=== PATIENT | male | born 1980 ===

== ENCOUNTER 2024-09-01 16:10 | Outpatient (CLI) | payer OTHER, SELFPAY ==
--- NOTE | ~2024-09-01 | XR_ITS ---
XR foot LT min 3V Ordering provider: Becca Barrera, TERRI History: . Unspecified injury of left foot, initial encounter . Comparison: None. FINDINGS: BONES: No acute fracture or dislocation. Small bony fragments near to the base of the proximal phalan x of the first and fourth toes. JOINT SPACES: Narrowing of the tarsometatarsal joints. Narrowing of the naviculocuneiform joints. No tarsal coalition. SOFT TISSUES: Ossification of the insertion of the tendo Achilles. IMPRESSION: No acute osseous abnormality left foot. Polyarticular osteoarthritic changes. Reviewed, dictated and finalized at location A.
== END 2024-09-01 16:11 | disposition home or self-care (01) ==
LOC: MICIMG 16:13
PROVIDERS: PCP Physician Assistant; Visit Provider Physician Assistant
DX: M19.072 Primary osteoarthritis, left ankle and foot (principal)
CPT/HCPCS: 73630

== ENCOUNTER 2024-10-08 12:49 | Outpatient (CLI) | payer OTHER, SELFPAY ==
--- NOTE | ~2024-10-08 | US_ITS ---
EXAMINATION: US thyroid DATE: 10/08/2024 13:08 INDICATION: Abnormal thyroid function test TECHNIQUE: Multiple ultrasound images of the thyroid were obtained. COMPARISON: None. FINDINGS: The right thyroid lobe measures 3.2 x 0.9 x 1.2 cm. The left thyroid lobe measures 4.4 x 1.3 x 1.0 c m. Thyroid isthmus measures 4 mm in thickness. No discrete nodules identified. There is normal echote xture, echogenicity and vascular flow throughout the thyroid gland. IMPRESSION: 1. Normal thyroid ultrasound. Reviewed, dictated and finalized at location A. TER
== END 2024-10-08 12:50 | disposition home or self-care (01) ==
LOC: MICIMG 12:49
PROVIDERS: PCP Physician Assistant; Visit Provider Physician Assistant
DX: R94.6 Abnormal results of thyroid function studies (principal)
CPT/HCPCS: 76536

== ENCOUNTER 2025-06-15 08:21 | Outpatient (CLI) | payer OTHER, SELFPAY ==
--- NOTE | 2025-06-15 | EST_ITS ---
Patient Info Name: Jamir Burnett Age: 44 years : 1980 Gender: Male Ht: 72 in Wt: 375 lbs BSA: 3.03 m2 HR: 66 bpm BP: 149 / 92 mmHg Exam Date: 06/15/2025 9:18 AM Patient Status: O Admit Date: 06/15/2025 Exam Type: CA stress test treadmill w NM A nuclear stress test was performed. Staff Referring Physician: Becca Barrera Attending Provider: Becca Barrera Exercise Technologist: Marisol Mo Exercise Physician: Rajeev Conrad DO Summary 1. 1. Negative Max exercise stress test for ischemic ST changes by ECG criteria. 2. 2. Reduced functional capacity, achieving 8.9 METs of workload. 3. 3. Baseline hypertension with hypertensive response to exercise. 4. 4. Appropriate HR response to exercise. 5. 5. Appropriate HR recovery at 1 minute post exercise. 6. 5. Nuclear scan to follow and will be reported separately. Please correlate with it. 7. 6. Patient informed of the above results. Protocol: Max Stress ECG Details Stage: REST Duration (min): 0 min : 32 sec Speed (mph): 0.0 Grade (%): 0 HR (bpm): 65 SBP (mmHg): --- DBP (mmHg): --- METS: --- Stage: REST Duration (min): 4 min : 25 sec Speed (mph): 0.0 Grade (%): 0 HR (bpm): 86 SBP (mmHg): 149 DBP (mmHg): 92 METS: --- Stage: STAGE 1 Duration (min): 1 min : 0 sec Speed (mph): 1.7 Grade (%): 10 HR (bpm): 118 SBP (mmHg): 149 DBP (mmHg): 92 METS: --- Stage: STAGE 1 Duration (min): 2 min : 0 sec Speed (mph): 1.7 Grade (%): 10 HR (bpm): 124 SBP (mmHg): 149 DBP (mmHg): 92 METS: --- Stage: STAGE 1 Duration (min): 3 min : 0 sec Speed (mph): 1.7 Grade (%): 10 HR (bpm): 125 SBP (mmHg): 149 DBP (mmHg): 92 METS: --- Stage: STAGE 2 Duration (min): 1 min : 0 sec Speed (mph): 2.5 Grade (%): 12 HR (bpm): 132 SBP (mmHg): 149 DBP (mmHg): 92 METS: --- Stage: STAGE 2 Duration (min): 2 min : 0 sec Speed (mph): 2.5 Grade (%): 12 HR (bpm): 134 SBP (mmHg): 221 DBP (mmHg): 138 METS: --- Stage: STAGE 2 Duration (min): 3 min : 0 sec Speed (mph): 2.5 Grade (%): 12 HR (bpm): 143 SBP (mmHg): 221 DBP (mmHg): 138 METS: --- Stage: STAGE 3 Duration (min): 1 min : 0 sec Speed (mph): 3.4 Grade (%): 14 HR (bpm): 150 SBP (mmHg): 221 DBP (mmHg): 138 METS: --- Stage: STAGE 3 Duration (min): 1 min : 0 sec Speed (mph): 3.4 Grade (%): 14 HR (bpm): 151 SBP (mmHg): 221 DBP (mmHg): 138 METS: --- Stage: RECOVERY Duration (min): 0 min : 59 sec Speed (mph): 0.0 Grade (%): 0 HR (bpm): 123 SBP (mmHg): 200 DBP (mmHg): 40 METS: --- Stage: RECOVERY Duration (min): 1 min : 59 sec Speed (mph): 0.0 Grade (%): 0 HR (bpm): 102 SBP (mmHg): 200 DBP (mmHg): 40 METS: --- Stage: RECOVERY Duration (min): 2 min : 59 sec Speed (mph): 0.0 Grade (%): 0 HR (bpm): 99 SBP (mmHg): 200 DBP (mmHg): 40 METS: --- Stage: RECOVERY Duration (min): 3 min : 59 sec Speed (mph): 0.0 Grade (%): 0 HR (bpm): 93 SBP (mmHg): 223 DBP (mmHg): 56 METS: --- Stage: RECOVERY Duration (min): 4 min : 7 sec Speed (mph): 0.0 Grade (%): 0 HR (bpm): 91 SBP (mmHg): 223 DBP (mmHg): 56 METS: --- Rest HR: 86 bpm Peak HR: 151 bpm Rest Sys BP: 149 mmHg Peak Sys BP: 223 mmHg Max Pred HR: 178 bpm % Max Pred HR: 85 % Target HR: 151 bpm Max RPP: 33,673 bpm*mmHg Sánchez Score: -6 BP Response: Patient exhibited a hypertensive response with stress Termination Reason: Reached target heart rate or workload Cardiac Symptoms: Shortness of breath Max ST Seg Deviation: 2.50 mm Total Time: 7 min : 0 sec Rest Ferreira BP: 92 mmHg Peak Ferreiar BP: 56 mmHg Angina Score: None Total METS: 8.9 Resting ECG Sinus rhythm, borderline ST-T wave abnormality in inf/lat leads. Stress ECG No ST changes. Arrhythmias None. Report Signatures
--- NOTE | ~2025-06-15 | NM_ITS ---
EXAMINATION: NM stress w perf spect multi DATE: 06/15/2025 12:35 INDICATION: Uncontrolled hypertension TECHNIQUE: Rest images were obtained following intravenous administration of 10.6 mCi Tc99m tetrofosm in ([employer]). The patient performed an exercise activity. At peak exercise, 31.8 mCi Tc99m tetrofosmi n ([employer]) was administered intravenously, and stress images were obtained. Data was reconstructed i nto short axis and horizontal and vertical long axis SPECT images. Gated SPECT images were also obtai michael. COMPARISON: None. FINDINGS: There is normal left ventricular perfusion without definite evidence of reversible or fixed perfusion abnormality to suggest ischemia or infarction. There is normal left ventricular chamber size, wall motion and ejection fraction. Left ventricular ejection fraction measures 64%. IMPRESSION: 1. Normal myocardial perfusion at rest and during stress. 2. Left ventricular ejection fraction measuring 64%. Reviewed, dictated and finalized at location A.
--- OUTSIDE RECORDS SUMMARY | 2025-06-15 08:30 | XMS_ITS | Clinical Summary ---
Author Organization [facility] Address [address] [place] [id number] Care Team Providers Care O[employer] Worker Name Role Phone Unavailable Primary Care Provider Unavailabl e Social History Tobacco Use Types Packs/Day Years Used Date Smoking Tobacco: Never Assessed Sex and Gender Information Value Date Recorded Sex Assigned at Not on file Legal Sex Male 7:41 PM CDT Gender Identity Not on file Sexual Orientation Not on file Plan of Treatment Health Maintenance Due Date Last Done Comments Annual Physical 1983 Hepatitis C 2000 DTaP, Tdap and Td Vaccines ( 1 - Tdap) 2001 Hepatitis B Vaccines (1 of 3 - 19+ 3-dose series) 2001 HPV Vaccines (1 - 3-dose SCD M series) 2009 COVID-19 Vaccine (2023-2 5 season) 2024 Meningococcal B Vaccine Aged Out No l onger eligible based on patient's age to complete this topic Meningococcal Vaccine Aged Out No jessica socorro eligible based on patient's age to complete this topic Pneumococcal Vaccine: Pediat rics (0 to 5 Years) and At-Risk Patients (6 to 49 Years) Aged Out No longer eligible b ased on patient's age to complete this topic RSV Immunizations Under 20 Months Aged Out No longer eligible based on patient's age to complete this topic
== END 2025-06-15 08:22 | disposition home or self-care (01) ==
LOC: ANHCARD 08:26
PROVIDERS: PCP Physician Assistant; Visit Provider Physician Assistant
DX: I10 Essential (primary) hypertension (principal)
CPT/HCPCS: 78452; 93017; A9502; J2785